=== PATIENT | female | born 1940 | race Two or more races ===

== ENCOUNTER 2023-03-16 12:05 | Emergency (ER) | payer OTHER ==
[~2023-03-16] VITALS: Ht 162.6 cm; Wt 75.3 kg
[2023-03-16] MEDS ORDERED: ZETIA10 MG PO (12:26)
[2023-03-16] MEDS ORDERED: AMLODIPINE-OLM1 EAC2 PO (12:27)
[2023-03-16] MEDS ORDERED: COZAAR100 MG PO (12:28)
[2023-03-16] MEDS ORDERED: GLUMETZA500 MG PO (12:28)
[2023-03-16] MEDS ORDERED: HORIZANT300 MG PO (12:29)
[2023-03-16] MEDS ORDERED: HYDROCHLOROTHIA25 MG PO (12:29)
[2023-03-16] MEDS ORDERED: ATORVASTATIN CA80 MG PO (12:30)
[2023-03-16] MEDS ORDERED: TOPROL XL100 M1 PO (12:30)
[2023-03-16] MEDS ORDERED: JARDIANCE10 MG PO (12:30)
[2023-03-16] MEDS ORDERED: CELECOXIB200 MG PO (12:31)
== END 2023-03-16 13:56 | disposition home or self-care (01) ==
LOC: ER 12:06
DX: S00.83XA Contusion of other part of head, initial encounter (principal); W18.39XA Other fall on same level, initial encounter; Y93.89 Activity, other specified; Y92.018 Other place in single-family (private) house as the place of occurrence of the external cause; Z88.8 Allergy status to other drugs, medicaments and biological substances
CPT/HCPCS: 96372; 99284; J1885